=== PATIENT | female | born 1970 | race Caucasian/White ===

== ENCOUNTER 2017-02-15 15:41 | Emergency (ER) | payer OTHER ==
--- NOTE | ~2017-02-15 | CR2 ---
[facility] A Service of [facility] & [facility] [place] RADIOLOGY TEXT RESULTS PATIENT: PAGE STUART LOCATION: [facility] : 72 UNIT #: [id number] AGE: [address]: Baldomero Avalos MD SEX: F ORDER DR: [id number] [facility] [address] [place], [place] [address] [id number] MR#: [id number] Acc #: [id number] NAME: PAGE STUART : 1970 SEX: F STUDY DATE/TIME: 02/15/2017 17:42 UNIT: [facility] ROOM: STUDY DESCRIPTION: CR Abdomen Acute Series Attending Physician: Baldomero Avalos M.D. Ordering Physician: Baldomero Avalos M.D. Primary Care Physician: Josué Bowen M.D. MEDICAL IMAGING REPORT This report is preliminary unless electronic signature is present Acute abdomen series. HISTORY Abdomen pain for 2 weeks. No injury. FINDINGS Flat and upright views of the abdomen and upright view of the chest demonstrates the bowel gas pattern is normal. Small amount of stool in the right colon. No bowel dilatation or displacement. No free air. No abnormal calcifications are identified. Upright view of the chest demonstrates the cardiac size and pulmonary vascularity are normal. No airspace infiltrates or effusions. IMPRESSION No acute findings. Normal bowel gas pattern. Dictated by... Nuno Ramirez M.D. THIS IS AN ELECTRONICALLY VERIFIED REPORT Nuno Ramirez M.D. at 02/15/2017 10:50 PM BRANT/berna TD: 02/15/2017 19:15 JOB #: [id number] MEDICAL IMAGING REPORT Page 1 of 1 COPY
[2017-02-15 17:57] LABS: BASOPHIL# 0.1 X10e3 (0-0.3); BASOPHIL% 0.7 % (0-2.5); EOSINOPHIL# 0.1 X10e3 (0-0.7); EOSINOPHIL% 1.3 % (0.0-7.0); HEMATOCRIT 40.5 % (35.0-45.0); HEMOGLOBIN 13.5 gm/dL (12.0-16.0); LYMPHOCYTE# 2.5 X10e3 (1.0-3.5); LYMPHOCYTE% 21.5 % (17.0-45.0); MEAN CORPUSCULAR HGB CONC 33.4 g/dL (30-36); MEAN PLATELET VOLUME 7.9 FL (6.5-11.5); MONOCYTE# 0.9 X10e3 (0-1.0); MONOCYTE% 7.4 % (3.0-12.0); NEUTROPHIL# 8.1 X10e3 (1.5-7.1); NEUTROPHIL% 69.1 % (40-75); PLATELET COUNT 318 X10e3 (140-420); RED CELL DISTRIBUTION WIDTH 12.8 % (11.0-15.5); WHITE BLOOD COUNT 11.7 X10e3 (4.0-10.5)
[2017-02-15 18:01] LABS: DIFF IND NO
[2017-02-15 18:22] LABS: ALBUMIN SERUM 4.1 g/dL (3.5-5.0); BILIRUBIN, DIRECT 0.1 mg/dL (0.0-0.2); BILIRUBIN,INDIRECT 0.5 mg/dL (0.0-0.9); BILIRUBIN,TOTAL 0.6 mg/dL (0.2-2.0); CALCIUM SERUM 9.2 mg/dL (8.4-10.2); CREATININE SERUM 0.7 mg/dL (0.6-1.4); GLOM FILT RATE Estimated 104.6 mL/min (>60); POTASSIUM 3.7 mmol/L (3.5-5.1); PROTEIN TOTAL SERUM 7.2 g/dL (6.0-8.3)
== END 2017-02-15 19:15 | disposition home or self-care (01) ==
LOC: CED 15:41
PROVIDERS: Emergency Medicine
DX: R10.84 Generalized abdominal pain (principal); F17.210 Nicotine dependence, cigarettes, uncomplicated; Z88.0 Allergy status to penicillin
CPT/HCPCS: 36415; 74022; 80048; 80076; 82150; 83690; 84703; 85025; 99284; J0500; J2405